=== PATIENT | male | born 1940 | race Caucasian/White ===

== ENCOUNTER → 2020-06-08 | Day surgery (SDC) | payer MEDICARE, OTHER ==
[2020-06-03 11:18] LABS: BASOPHILS # (AUTO) 0.1 (0.0-0.1); BASOPHILS % 0.4 % (0.0-1.0); EOSINOPHILS # (AUTO) 0.8 (0.0-0.4); EOSINOPHILS % 5.4 % (0.0-6.0); HEMATOCRIT 40.3 % (38.2-49.6); HEMOGLOBIN 13.2 g/dL (14.0-18.0); LYMPHOCYTES # (AUTO) 2.7 (1.0-3.2); LYMPHOCYTES % 19.6 % (18.0-39.1); MEAN CORPUSCULAR HEMOGLOBIN 29.9 pg (28-32); MEAN CORPUSCULAR HGB CONC 32.8 g/dL (31-35); MEAN CORPUSCULAR VOLUME 91.2 fL (81-99); MONOCYTES # (AUTO) 1.3 (0.2-0.8); MONOCYTES % 9.6 % (4.4-11.3); NEUTROPHILS # (AUTO) 8.9 (2.1-6.9); NEUTROPHILS % 64.2 % (38.7-80.0); PLATELET COUNT 337 x10e3/uL (140-360); RED BLOOD COUNT 4.42 x10e6/uL (4.3-5.7); RED CELL DISTRIBUTION WIDTH 12.9 % (11.7-14.4)
--- NOTE | 2020-06-03 12:08 | Diagnostic Imaging Report ---
Exam: CHEST 2 VIEWS Date: 06/03/2020 12:04 PM INDICATION: ^[id number] ^[id number] ^PRE-OP Comparison: None FINDINGS: Lines/Tubes:None Lungs:The lungs are well inflated. No focal consolidation or pulmonary edema. Pleura:No pleural effusion. No pneumothorax. Heart/Mediastinum:The cardiomediastinal silhouette is normal in size and contour. Thoracic aorta is slightly tortuous. Calcifications of the aortic knob are noted. Bones/Soft Tissues: No acute osseous abnormality. Mild to moderate multilevel degenerative changes of the spine are noted. Upper abdomen: Unremarkable. Negative for gross free air underneath the right hemidiaphragm. Eventration of the diaphragms is noted. IMPRESSION: Negative for acute intrathoracic process. Signed by: Gurpreet Jones MD on 06/03/2020 12:05 PM
[~2020-06-08] MED LIST: CLINDAMYCIN 600MG / 50ML 50 ML IV ONE; DEXAMETHASONE SOD PHOS INJ 4 MG/ML VIAL ONE; EPHEDRINE SULFATE INJ 50 MG/ML VIAL ONE; FENTANYL CITRATE/PF 100MCG/2 ML INJ ONE; GLYCOPYRROLATE INJ 0.2 MG/ML VIAL ONE; LIDOCAINE HCL 2% LOCAL INJ 5 ML SDV VIAL INJ ONE; METOPROLOL TAR100 MG PO; ONDANSETRON HCL INJ 2MG/ML 2ML 2 MG/ML VIAL ONE; PROPOFOL IV EMULSION 10 MG/ML 20 ML VIAL ONE; SEVOFLURANE INHAL SOLN 250 ML PEN BTL ONE; TOPIRAMATE100 MG PO; VASOTEC5 MG PO
[2020-06-08 08:55] VITALS: BP 157/89
--- NOTE | 2020-06-09 14:41 | Operative Report ---
DATE OF PROCEDURE: 06/08/2020 SURGEON: Fabian Ortega MD ERECTING ENGINEER: Leonid Sellers, certified PA. PREOPERATIVE DIAGNOSES: 1. Recurrent right carpal tunnel syndrome. 2. Left carpal tunnel syndrome. POSTOPERATIVE DIAGNOSES: 1. Recurrent right carpal tunnel syndrome. 2. Left carpal tunnel syndrome. PROCEDURES: 1. Revision right carpal tunnel release. 2. Primary left endoscopic carpal tunnel release. INDICATIONS: The patient is an 79-year-old gentleman, who has persistent numbness and tingling in both hands. He had a right carpal tunnel release many years ago. 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 The findings and options have been discussed. The patient would like to proceed with surgical intervention. The possibility of some persistent symptoms due to the severity of his nerve conduction tests was discussed. He states he understands and wishes to proceed. PROCEDURE IN DETAIL: The patient was brought to the operating room and placed under general anesthetic. Both upper extremities were prepped and draped in a sterile manner. A preoperative time-out was performed. Initial attention was directed towards the right upper extremity. The extremity was exsanguinated and a proximal tourniquet was inflated to 250 mmHg. An incision was made over the flexion crease of the right wrist. The flexor retinaculum was elevated and incised. A retractor was placed. An elevator was used to carefully tease the tenosynovium off the undersurface of the transverse carpal ligament. Dilators were placed. The hook of the hamate was palpated. The Micro[employer] endoscope was then placed into the carpal tunnel. The undersurface of the ligament was cleanly visualized without evidence of soft tissue interposition. The knife was deployed and the ligament was cut from distal to proximal. Distal thickening was noted. Care was taken to ensure a full-thickness cut. The proximal retinaculum was incised under direct visualization using a pair of blunt Metzenbaum scissors. The incision was closed with 2 nylon stitches. A sterile bandage was applied. The tourniquet was deflated. The same procedure was then performed on the left upper extremity. The patient was then extubated and transported to the recovery room in stable condition. There was no blood loss and all needle and sponge counts were correct. Fabian Ortega MD DR/PHILIPPE /[id number]
== END | disposition home or self-care (01) ==
LOC: OR 05:20
PROVIDERS: ATTEND Specialist
DX: G56.03 Carpal tunnel syndrome, bilateral upper limbs (principal); J45.909 Unspecified asthma, uncomplicated; I10 Essential (primary) hypertension; Z88.0 Allergy status to penicillin; Z88.2 Allergy status to sulfonamides; Z01.810 Encounter for preprocedural cardiovascular examination; Z01.812 Encounter for preprocedural laboratory examination; Z01.818 Encounter for other preprocedural examination; Z11.59 Encounter for screening for other viral diseases
CPT/HCPCS: 29848; 36415; 71046; 85025; 93005; J1100; J2001; J2405; J2704; J3010; U0002